=== PATIENT | female | born 1955 | race Caucasian/White ===

== ENCOUNTER 2020-02-11 12:43 | Outpatient (CLI) | payer OTHER | END 2020-02-11 13:04 | disposition home or self-care (01) | LOC: SONOGRAMA 12:43 | DX: N60.11 Diffuse cystic mastopathy of right breast (principal); N60.12 Diffuse cystic mastopathy of left breast ==

== ENCOUNTER 2020-03-28 05:55 | Day surgery (SDC) | payer OTHER ==
[~2020-03-28 05:55] MED LIST: AVAPRO300 MG PO; METFORMIN HCL500 M3 PO; SPIRONOLACTONE25 MG PO; TOPROL XL200 MG PO
== END 2020-03-28 14:00 | disposition home or self-care (01) ==
LOC: CIR.AMB 05:55
DX: C50.212 Malignant neoplasm of upper-inner quadrant of left female breast (principal)